=== PATIENT | female | born 1970 | race Hispanic/Latino ===

== ENCOUNTER 2021-03-25 15:01 | Emergency (ER) | payer SELFPAY ==
[2021-03-25] MEDS ORDERED: Amoxicillin/Potassium Clav 875 MG TAB ONE (17:14)
== END 2021-03-25 17:15 | disposition home or self-care (01) ==
LOC: NAV ERS 15:01
DX: J02.9 Acute pharyngitis, unspecified (principal); H65.192 Other acute nonsuppurative otitis media, left ear
CPT/HCPCS: 87081; 87430; 99283

== ENCOUNTER 2022-07-24 09:38 | Emergency (ER) | payer SELFPAY ==
[2022-07-24 10:27] LABS: #Basophils 0.1 thou/uL (0.0-0.2); #Eosinphils 0.2 thou/uL (0.0-0.7); #Lymphocytes 2.9 thou/uL (1.20-3.40); #Monocytes 0.4 thou/uL (0.11-0.59); #Neutrophils 2.5 thou/uL (1.40-6.50); %Basophils 1.3 % (0.0-1.0); %Eosinophils 3.1 % (0.0-10.0); %Lymphocytes 48.1 % (21.0-51.0); %Monocytes 5.9 % (0.0-10.0); %Neutrophils 41.6 % (42.0-75.0); Hemoglobin 13.4 g/dL (12.0-16.0); Mean Corpuscular HGB CONC 32.6 g/dL (32.0-36.0); Mean Corpuscular Hemoglobin 28.2 pg (27.0-31.0); Mean Corpuscular Volume 86.4 fl (78.0-98.0); Mean Platelet Volume 9.2 fL (7.4-10.4); Platelet Count 248 10x3/uL (130-400); RBC Distribution Width 12.3 % (11.5-14.5); Red Blood Cell (RBC) Count 4.76 mill/uL (4.20-5.40)
[2022-07-24 10:44] LABS: INR-International Normal Ratio 0.9; Prothrombin Time 12.2 sec (12.0-14.7)
[2022-07-24 10:45] LABS: PTT 27.3 sec (22.9-36.1)
[2022-07-24 10:47] LABS: ALT (SGPT) 22 U/L (8-55); AST (SGOT) 15 U/L (5-34); Albumin 4.4 g/dL (3.5-5.0); Alkaline Phosphatase 132 U/L (40-110); Anion Gap 14 mmol/L (10-20); BUN (Urea Nitrogen) 18 mg/dL (9.8-20.1); Bilirubin, Total 0.3 mg/dL (0.2-1.2); CK (CPK) 143 U/L (29-168); Calc. Creatinine Clearance 0 mL/min (70-130); Calcium 9.4 mg/dL (7.8-10.44); Carbon Dioxide 24 mmol/L (22-29); Chloride 108 mmol/L (98-107); Estimated GFR 103; Globulin 2.9 g/dL (2.4-3.5); Glucose 116 mg/dL (70-105); Magnesium 1.8 mg/dL (1.6-2.6); Potassium 3.7 mmol/L (3.5-5.1); Protein, Total 7.3 g/dL (6.0-8.3); Sodium 142 mmol/L (136-145)
[2022-07-24] MEDS ORDERED: Aspirin 325 MG TAB ONE (10:57)
[2022-07-24] MEDS ORDERED: Ketorolac Tromethamine 30 MG/ML VIAL ONE (12:30)
[2022-07-24] MEDS ORDERED: Sodium Chloride 0.9% 1,000 ML ONE (12:30)
[2022-07-24 12:53] LABS: Troponin I Less than 0.010 ng/mL (< 0.028)
== END 2022-07-24 13:33 | disposition home or self-care (01) ==
LOC: NAV ERS 09:38
DX: R07.89 Other chest pain (principal); R20.2 Paresthesia of skin; E11.9 Type 2 diabetes mellitus without complications
CPT/HCPCS: 36415; 70450; 71046; 80053; 82550; 83735; 84484; 85025; 85610; 85730; 93005; 96374; J1885; J7050